=== PATIENT | male | born 1985 | race Two or more races ===

== ENCOUNTER 2022-06-02 12:34 | Emergency (ER) | payer OTHER ==
[~2022-06-02] VITALS: Ht 154.9 cm; Wt 59.1 kg
[2022-06-02 13:02] LABS: BASO # 0.1 10^3/uL (0.0-0.2); BASO % 0.9 % (0.0-1.0); EOS # 0.1 10^3/uL (0.0-0.5); HEMATOCRIT 45.5 % (42.0-52.0); HEMOGLOBIN 15.9 g/dl (13.5-17.5); LYMPH # 1.9 10^3/uL (1.5-5.0); LYMPH % 28.4 % (24.0-44.0); MEAN CORPUSCULAR HEMOGLOBIN 29.9 pg (27.0-33.0); MEAN CORPUSCULAR HGB CONC 34.9 g/dl (32.0-36.5); MEAN CORPUSCULAR VOLUME 85.7 fl (80.0-96.0); MONO # 0.5 10^3/uL (0.0-0.8); MONO % 8.1 % (2.0-8.0); PLATELET COUNT, AUTOMATED 237 10^3/uL (150-450); RED BLOOD COUNT 5.31 10^6/uL (4.30-6.10); WHITE BLOOD COUNT 6.7 10^3/uL (4.0-10.0)
[2022-06-02 13:25] LABS: INR 0.96
[2022-06-02 13:26] LABS: PARTIAL THROMBOPLASTIN TIME 32.6 SECONDS (24.8-34.2)
[2022-06-02 13:36] LABS: LIPASE 42 U/L (12-53)
[2022-06-02 13:38] LABS: ALBUMIN 4.1 G/DL (3.2-5.2); ALKALINE PHOSPHATASE 74 U/L (46-116); ALT/SGPT 32 U/L (7.0-40); AST/SGOT 26 U/L (<34); BILIRUBIN,DIRECT 0.7 MG/DL (<0.4); BILIRUBIN,TOTAL 2.6 MG/DL (0.3-1.2); BLOOD UREA NITROGEN 13 MG/DL (9-23); CARBON DIOXIDE LEVEL 27 MMOL/L (20-31); CHLORIDE LEVEL 103 MMOL/L (98-107); CK-MB VALUE MASS 1.9 NG/ML (<3.6); CREATININE FOR GFR 0.81 MG/DL (0.70-1.30); GLOMERULAR FILTRATION RATE > 60.0 (>60); GLUCOSE, FASTING 93 MG/DL (60-100); POTASSIUM SERUM 4.1 MMOL/L (3.5-5.1); SODIUM LEVEL 138 MMOL/L (136-145); TOTAL PROTEIN 8.1 G/DL (5.7-8.2)
[2022-06-02 13:39] LABS: CPK CREATINE PHOSPHOKINASE 290 U/L (46-171); MB/CK RELATIVE INDEX 0.65 (< OR =4)
[2022-06-02 13:40] LABS: THYROID STIMULATING HORMONE 1.138 uIU/ML (0.55-4.78)
[2022-06-02 13:45] LABS: FREE T4 0.94 NG/DL (0.89-1.76)
[2022-06-02 14:43] LABS: CK-MB VALUE MASS 1.8 NG/ML (<3.6)
[2022-06-02 14:48] LABS: D-DIMER QUANT < 270 ng/ml (<500)
[2022-06-02 15:04] LABS: CPK CREATINE PHOSPHOKINASE 293 U/L (46-171); MB/CK RELATIVE INDEX 0.61 (< OR =4)
[2022-06-02] MEDS ORDERED: NAPR-837 PO (15:09)
[2022-06-02] MEDS: NAPROXEN 250 MG TAB PO ONE (15:15)
[2022-06-02 15:18] VITALS: BP 140/78
== END 2022-06-02 15:19 | disposition home or self-care (01) ==
LOC: M ED 12:34
DX: R07.89 Other chest pain (principal)

== ENCOUNTER 2022-09-22 10:39 | Day surgery (SDC) | payer OTHER ==
[~2022-09-22] VITALS: Ht 152.4 cm; Wt 61.9 kg
[~2022-09-22 10:39] MED LIST: NAPR-837 PO
[2022-09-22] MEDS ORDERED: LR 1,000 ML IV SCH ×3 (10:55→15:50)
[2022-09-22] MEDS ORDERED: MIDAZOLAM INJ 2MG/2ML VIAL As Ordered ONE (12:30)
[2022-09-22] MEDS ORDERED: fentaNYL 100 MCG/2 ML INJECTION As Ordered ONE ×2 (12:30→13:19)
[2022-09-22] MEDS ORDERED: ACETAMINOPHEN 1000MG 100ML IV BAG As Ordered ONE (12:31)
[2022-09-22] MEDS ORDERED: ONDANSETRON 4MG 2ML VIAL As Ordered ONE (12:31)
[2022-09-22] MEDS ORDERED: LIDOCAINE 2% 100MG/5ML SDV (FOR ANES.) As Ordered ONE (12:32)
[2022-09-22] MEDS ORDERED: SUGAMMADEX SODIUM 500 MG/5 ML VIAL (BRIDION) As Ordered ONE (12:32)
[2022-09-22] MEDS ORDERED: ROCURONIUM BROMIDE 50MG/5ML VIAL As Ordered ONE (12:32)
[2022-09-22] MEDS ORDERED: propofoL 200 MG/20 ML VIAL As Ordered ONE (12:33)
[2022-09-22] MEDS ORDERED: COCAINE 4% 4ML NASAL SOLUTION BTL As Ordered ONE (12:46)
[2022-09-22] MEDS ORDERED: OXYMETAZOLINE 0.05% NASAL SPRAY (AFRIN) As Ordered ONE (12:46)
[2022-09-22] MEDS ORDERED: LIDOCAINE W/EPINEPHRINE 1% 20ML VIAL As Ordered ONE (12:47)
[2022-09-22] MEDS ORDERED: oxyCODONE 5MG TAB PO PRN (14:00)
[2022-09-22] MEDS ORDERED: fentaNYL 100 MCG/2 ML INJECTION IV PRN (14:00)
[2022-09-22] MEDS ORDERED: ONDANSETRON 4MG 2ML VIAL IV PRN ×2 (14:00→15:55)
[2022-09-22] MEDS ORDERED: HYDROMORPHONE HCL 0.5 MG/ 0.5 ML SYRINGE IV PRN (14:00)
[2022-09-22 15:39] VITALS: BP 129/80
[2022-09-22] MEDS ORDERED: ANEXSIA, NORCO 7.5MG/325MG TABLET(HYDROCODONE/APAP) PO PRN (15:55)
== END 2022-09-22 16:18 | disposition home or self-care (01) ==
LOC: M SDC 10:39
PROVIDERS: ATTEND Otolaryngology
DX: J34.2 Deviated nasal septum (principal); J34.3 Hypertrophy of nasal turbinates; Z79.1 Long term (current) use of non-steroidal anti-inflammatories (NSAID)
CPT/HCPCS: 30130; 30520; C9143; J0131; J1100; J2250; J2405; J3010

== ENCOUNTER → 2022-12-30 | Outpatient (CLI) | payer OTHER | LOC: M SOG 08:01 | PROVIDERS: ATTEND Physician Assistant | DX: M25.531 Pain in right wrist (principal) ==

== ENCOUNTER 2023-03-03 07:36 | Day surgery (SDC) | payer OTHER ==
[~2023-03-03] VITALS: Ht 157.5 cm; Wt 63.3 kg
[~2023-03-03 07:36] MED LIST changes: +VITA100093 PO
[2023-03-03] MEDS ORDERED: LR 1,000 ML IV SCH ×2 (07:45→10:50)
[2023-03-03] MEDS ORDERED: MIDAZOLAM INJ 2MG/2ML VIAL As Ordered ONE (07:56)
[2023-03-03] MEDS ORDERED: LIDOCAINE 2% 100MG/5ML SDV (FOR ANES.) As Ordered ONE (07:56)
[2023-03-03] MEDS ORDERED: fentaNYL 100 MCG/2 ML INJECTION As Ordered ONE ×2 (07:56→10:08)
[2023-03-03] MEDS ORDERED: propofoL 200 MG/20 ML VIAL As Ordered ONE (07:56)
[2023-03-03] MEDS ORDERED: ceFAZolin SOD 2 GM in IV 1 EA IV ONE (09:00)
[2023-03-03] MEDS ORDERED: ONDANSETRON 4MG 2ML VIAL As Ordered ONE (10:04)
[2023-03-03] MEDS ORDERED: ACETAMINOPHEN 1000MG 100ML IV BAG As Ordered ONE (10:04)
[2023-03-03] MEDS ORDERED: KETOROLAC 60MG 2ML VIAL As Ordered ONE (10:04)
[2023-03-03] MEDS ORDERED: METOCLOPRAMIDE INJ 10MG/2ML VIAL IV PRN (10:50)
[2023-03-03] MEDS ORDERED: oxyCODONE 5MG TAB PO PRN (10:50)
[2023-03-03] MEDS ORDERED: ONDANSETRON 4MG 2ML VIAL IV PRN (10:50)
[2023-03-03] MEDS ORDERED: fentaNYL 100 MCG/2 ML INJECTION IV PRN (10:50)
[2023-03-03] MEDS ORDERED: PERC5TAB12 PO (10:53)
[2023-03-03 11:36] VITALS: BP 127/74; TEMP 98.1; O2SAT 99
== END 2023-03-03 12:00 | disposition home or self-care (01) ==
LOC: M SDC 07:36
PROVIDERS: ATTEND Orthopaedic Surgery Hand Surgery
DX: M25.531 Pain in right wrist (principal); S63.591S Other specified sprain of right wrist, sequela; G47.30 Sleep apnea, unspecified
CPT/HCPCS: 29846; J0131; J0665; J0690; J1100; J1885; J2250; J2405; J3010

== ENCOUNTER → 2023-05-22 | Outpatient (CLI) | payer OTHER ==
[~2023-05-22] MED LIST changes: +PERC5TAB12 PO
== END ==
LOC: M SOG 07:56
PROVIDERS: ATTEND Physician Assistant
DX: M25.531 Pain in right wrist (principal)

== ENCOUNTER → 2024-05-20 | Outpatient (CLI) | payer OTHER | LOC: M PLAIMG 14:39 | PROVIDERS: ATTEND General Practice | DX: R91.1 Solitary pulmonary nodule (principal); R91.8 Other nonspecific abnormal finding of lung field ==